=== PATIENT | male | born 1995 | race Caucasian/White ===

== ENCOUNTER 2018-06-14 01:31 | Emergency (ER) | payer MEDICAID ==
[~2018-06-14] VITALS: Ht 170.2 cm; Wt 59.3 kg
[~2018-06-14 01:31] MED LIST: HYDR-4383 PO
[2018-06-14 01:42] VITALS: BP 112/88
[2018-06-14] MEDS ORDERED: POLY17PO10 PO (02:00)
[2018-06-14] MEDS ORDERED: MAGN296S50 PO (02:00)
== END 2018-06-14 02:09 | disposition home or self-care (01) ==
LOC: ER 01:32
DX: K62.89 Other specified diseases of anus and rectum (principal); K64.9 Unspecified hemorrhoids; K59.00 Constipation, unspecified; Z79.899 Other long term (current) drug therapy
CPT/HCPCS: 99282

== ENCOUNTER 2018-06-30 22:28 | Emergency (ER) | payer MEDICAID ==
[~2018-06-30] VITALS: Ht 170.2 cm; Wt 69.0 kg
[~2018-06-30 22:28] MED LIST changes: +MAGN296S50 PO; +POLY17PO10 PO
[2018-06-30 22:32] VITALS: BP 132/88
--- NOTE | 2018-06-30 22:42 | NUR ---
PT STATES FOUL SMELL COMING FROM INSIDE NOSE
[2018-06-30] MEDS ORDERED: AMOX-422 PO (22:58)
--- NOTE | 2018-06-30 23:43 | NUR ---
RESOURCE INFORMATION GIVEN TO PT. 3 BAGGED LUNCHES GIVEN. PT SIGNED WAIVER FORM.
== END 2018-06-30 23:23 | disposition home or self-care (01) ==
LOC: ER 22:28
DX: J32.1 Chronic frontal sinusitis (principal)
CPT/HCPCS: 99283

== ENCOUNTER 2018-08-03 10:37 | Emergency (ER) | payer MEDICAID ==
[~2018-08-03] VITALS: Ht 175.3 cm; Wt 68.5 kg
[~2018-08-03 10:37] MED LIST changes: -POLY17PO10 PO
[2018-08-03 10:39] VITALS: BP 124/79
[2018-08-03] MEDS ORDERED: CLIN150C2 PO (11:41)
== END 2018-08-03 11:52 | disposition home or self-care (01) ==
LOC: ER 10:37
DX: K04.7 Periapical abscess without sinus (principal); Z79.899 Other long term (current) drug therapy
CPT/HCPCS: 99283

== ENCOUNTER 2020-01-21 12:46 | Emergency (ER) | payer MEDICAID ==
[~2020-01-21] VITALS: Ht 175.3 cm; Wt 68.2 kg
[~2020-01-21 12:46] MED LIST changes: -MAGN296S50 PO; +MAGN296S70 PO
[2020-01-21 12:47] VITALS: BP 142/86
[2020-01-21] MEDS ORDERED: IBUP-1984 PO (13:12)
== END 2020-01-21 13:26 | disposition home or self-care (01) ==
LOC: ER 12:46
DX: M70.21 Olecranon bursitis, right elbow (principal); Z79.899 Other long term (current) drug therapy
CPT/HCPCS: 99282

== ENCOUNTER 2020-03-28 17:40 | Emergency (ER) | payer MEDICAID ==
[~2020-03-28] VITALS: Ht 170.2 cm; Wt 78.6 kg
[2020-03-28 17:50] VITALS: BP 119/84
[2020-03-29] MEDS ORDERED: CEPH500C5 PO (18:35)
== END 2020-03-28 20:37 | disposition left against medical advice (07) ==
LOC: ER 17:41
DX: M79.89 Other specified soft tissue disorders (principal); Z53.21 Procedure and treatment not carried out due to patient leaving prior to being seen by health care provider

== ENCOUNTER 2020-03-29 17:35 | Emergency (ER) | payer MEDICAID ==
[~2020-03-29] VITALS: Ht 170.2 cm; Wt 79.1 kg
[2020-03-29 17:45] VITALS: BP 120/82
[2020-03-29] MEDS ORDERED: CEPH500C5 PO (18:35)
== END 2020-03-29 19:07 | disposition home or self-care (01) ==
LOC: ER 17:36
DX: L03.116 Cellulitis of left lower limb (principal); M25.572 Pain in left ankle and joints of left foot; M25.472 Effusion, left ankle; Z79.2 Long term (current) use of antibiotics; Z79.899 Other long term (current) drug therapy
CPT/HCPCS: 99283

== ENCOUNTER 2021-02-04 05:44 | Emergency (ER) | payer MEDICAID ==
[~2021-02-04] VITALS: Ht 177.8 cm; Wt 80.0 kg
[2021-02-04] MEDS ORDERED: normal saline 1000ml 1,000 ML IV ONE (07:35)
[2021-02-04] MEDS ORDERED: ondansetron/PF 4mg/2ml inj IV ONE (07:35)
[2021-02-04] MEDS ORDERED: cloNIDine 0.1 mg tablet PO ONE (07:45)
[2021-02-04] MEDS ORDERED: ketorolac trometh. 30mg/ml inj. IV ONE (07:50)
[2021-02-04] MEDS ORDERED: acetaminophen 325mg tablet PO ONE (07:50)
[2021-02-04 09:28] VITALS: BP 124/81
== END 2021-02-04 09:30 | disposition home or self-care (01) ==
LOC: ER 05:44
DX: T50.7X1A Poisoning by analeptics and opioid receptor antagonists, accidental (unintentional), initial encounter (principal); R11.0 Nausea; F11.90 Opioid use, unspecified, uncomplicated; Z79.899 Other long term (current) drug therapy; Y92.89 Other specified places as the place of occurrence of the external cause
CPT/HCPCS: 71045; 93005; 96374; 96375; 99285; J1885; J2405; J7030

== ENCOUNTER 2021-02-09 03:21 | Emergency (ER) | payer MEDICAID ==
[~2021-02-09] VITALS: Ht 182.9 cm; Wt 95.5 kg
[2021-02-09] MEDS ORDERED: normal saline 1000ML IV soln IVB ONE ×2 (03:35→04:55)
[2021-02-09 04:04] LABS: BASOPHILS % (AUTO) 0.3 % (0-1); EOSINOPHILS # (AUTO) 0.1 X10'3 (0-0.9); EOSINOPHILS % (AUTO) 1.7 % (0-6); HEMATOCRIT 43.1 % (42.0-52.0); HEMOGLOBIN 14.3 g/dl (14.0-17.9); LYMPHOCYTES # (AUTO) 3.6 X10'3 (1.1-4.8); LYMPHOCYTES % (AUTO) 47.2 % (21-51); MEAN CORPUSCULAR HGB CONC 33.3 g/dL (33.0-36.5); MEAN CORPUSCULAR VOLUME 87.1 FL (78-98); MONOCYTES # (AUTO) 0.8 X10'3 (0-0.9); NEUTROPHILS # (AUTO) 3.1 X10'3 (1.8-7.7); NEUTROPHILS % (AUTO) 40.8 % (42-75); PLATELET COUNT 200 X10'3 (140-440); RED BLOOD COUNT 4.95 X10'6 (4.70-6.10); RED CELL DISTRIBUTION WIDTH 13.6 % (11.5-14.5); WHITE BLOOD COUNT 7.7 X10'3 (4.5-11.0)
[2021-02-09 04:08] LABS: ALANINE AMINOTRANSFERASE 46 U/L (12-78); ALBUMIN 4.4 G/DL (3.4-5.0); ALBUMIN/GLOBULIN RATIO 0.9 (1.1-1.5); ALKALINE PHOSPHATASE 103 IU/L (46-116); ANION GAP 5 (8-16); ASPARTATE AMINO TRANSFERASE 23 U/L (10-37); BILIRUBIN,TOTAL 0.6 MG/DL (0.1-1.0); BLOOD UREA NITROGEN 13 MG/DL (7-18); BUN/CREATININE RATIO 14.1 (5.4-32.0); CALCIUM 9.9 MG/DL (8.5-10.1); CHLORIDE 104 MMOL/L (99-107); CREATININE 0.92 MG/DL (0.60-1.10); ETHANOL < 0.010 GM/DL (0.0-0.010); GLUCOSE 98 MG/DL (70-104); POTASSIUM 4.2 MMOL/L (3.5-5.1); SODIUM 140 MMOL/L (135-145); TOTAL CARBON DIOXIDE 31.2 MMOL/L (24-32); TOTAL PROTEIN 9.1 G/DL (6.4-8.2); eGFR > 90 ML/MIN
[2021-02-09 04:13] LABS: URINE AMPHETAMINE SCREEN POSITIVE (Neg); URINE BARBITUATE SCREEN NEGATIVE (Neg); URINE BENZODIAZEPINES SCREEN NEGATIVE (Neg); URINE CANNABINOID SCREEN POSITIVE (Neg); URINE COCAINE SCREEN NEGATIVE (Neg); URINE METHADONE SCREEN NEGATIVE (Neg); URINE OPIATE SCREEN POSITIVE (Neg); URINE PHENCYCLIDINE SCREEN NEGATIVE (Neg)
[2021-02-09] MEDS ORDERED: LORazepam 2 mg/ml vial IV ONE (04:20)
[2021-02-09] MEDS ORDERED: haloperidol lactate 5mg/ml inj IM ONE (04:20)
[2021-02-09 04:21] LABS: COLOR,URINE YELLOW (Yellow); GLUCOSE, URINE NEGATIVE (Neg); KETONES,URINE NEGATIVE (Neg); LEUKOCYTE ESTERASE ,URINE NEGATIVE (Neg); NITRITES, URINE NEGATIVE (Neg); OCCULT BLOOD,URINE NEGATIVE (Neg); PH,URINE 5.5 (4.8-8.0); PROTEIN,URINE NEGATIVE (Neg); UROBILINOGEN,URINE 0.2 E.U/dL (0.2-1.0)
[2021-02-09 04:22] LABS: UA COLLECTION TYPE STRAIGHT CATH
[2021-02-09 04:27] LABS: CLARITY,URINE SLIGHTLY CLOUDY (Clear)
[2021-02-09 04:28] LABS: BACTERIA,URINE NONE SEEN /HPF (Neg); MUCUS STRANDS MANY /LPF (Neg); RBC,URINE NONE SEEN /HPF (0-2); SQUAMOUS EPITHELIAL CELL,UR FEW /LPF (FEW); WBC,URINE 0-4 /HPF (0-4)
--- NOTE | 2021-02-09 07:02 | NUR ---
patient is asleep, no longer thrashing. restraints dc'd, will continue to monitor.
--- NOTE | 2021-02-09 07:35 | NUR ---
DR. CALLAWAY UPDATED. PT IS STILL LETHARGIC FROM MEDICATIONS. AROUSABLE TO SHAKING. WILL CONTINUE TO MONITOR.
--- NOTE | 2021-02-09 09:45 | NUR ---
PATIENT NOW AROUSABLE. ABLE TO ANSWER ORIENTATION QUESTIONS. SEEMS CONFUSED ABOUT EVENTS FROM LAST NIGHT. MD UPDATED.
[2021-02-09 11:00] VITALS: BP 147/83
== END 2021-02-09 11:02 | disposition home or self-care (01) ==
LOC: ER 03:21
DX: T40.411A Poisoning by fentanyl or fentanyl analogs, accidental (unintentional), initial encounter (principal); T42.4X1A Poisoning by benzodiazepines, accidental (unintentional), initial encounter; T40.1X1A Poisoning by heroin, accidental (unintentional), initial encounter; R45.1 Restlessness and agitation; F15.90 Other stimulant use, unspecified, uncomplicated; Z79.899 Other long term (current) drug therapy; Y92.89 Other specified places as the place of occurrence of the external cause
CPT/HCPCS: 36415; 80053; 80305; 80320; 81001; 85025; 96361; 96372; 96374; 99285; J1630; J2060; J7030

== ENCOUNTER 2021-12-24 17:20 | Emergency (ER) | payer MEDICAID ==
[~2021-12-24] VITALS: Ht 175.3 cm; Wt 81.8 kg
[2021-12-24 18:17] VITALS: BP 122/84
[2021-12-24] MEDS ORDERED: LIDOcaine 1% W/epiNEPHrine 1:100,000 20ml vial IJ ONE (18:25)
[2021-12-24] MEDS ORDERED: amox tr/potassium clavulanate 875/125mg TAB PO ONE (19:30)
[2021-12-24] MEDS ORDERED: AMOX-117 PO (20:03)
[2021-12-24] MEDS ORDERED: ceFAZolin 1gm IM kit IM ONE (20:25)
== END 2021-12-24 20:43 | disposition home or self-care (01) ==
LOC: ER 17:20
DX: S61.252A Open bite of right middle finger without damage to nail, initial encounter (principal); W54.0XXA Bitten by dog, initial encounter; Y93.89 Activity, other specified; Y92.89 Other specified places as the place of occurrence of the external cause; Y99.8 Other external cause status; Z79.899 Other long term (current) drug therapy
CPT/HCPCS: 26010; 73140; 96372; 99283; J0690; J7030; A6258; A6449

== ENCOUNTER 2022-01-12 19:50 | Emergency (ER) | payer SELFPAY ==
[~2022-01-12] VITALS: Ht 177.8 cm; Wt 81.8 kg
[2022-01-12 20:07] VITALS: BP 121/77
== END 2022-01-12 22:27 | disposition left against medical advice (07) ==
LOC: ER 19:51
DX: L03.90 Cellulitis, unspecified (principal); Z53.21 Procedure and treatment not carried out due to patient leaving prior to being seen by health care provider

== ENCOUNTER 2024-03-23 20:02 | Emergency (ER) | payer OTHER ==
[~2024-03-23] VITALS: Ht 175.3 cm; Wt 81.0 kg
[~2024-03-23 20:02] MED LIST changes: -MAGN296S70 PO; +MAGN296S89 PO
[2024-03-23 22:17] VITALS: BP 132/67; PULSE 82; RESP 16; TEMP 98.4; O2SAT 99
== END 2024-03-23 22:19 | disposition home or self-care (01) ==
LOC: ER 20:02
DX: M25.561 Pain in right knee (principal); M25.461 Effusion, right knee; F11.90 Opioid use, unspecified, uncomplicated; Z79.899 Other long term (current) drug therapy
CPT/HCPCS: 29505; 73564; 99283

== ENCOUNTER 2024-08-23 04:41 | Inpatient (IN) | payer OTHER ==
[~2024-08-23] VITALS: Ht 175.3 cm; Wt 76.9 kg
[2024-08-23] MEDS: vancomycin/NS 1 GM ADD-VANTAGE 250 ML IV ONE (05:35)
[2024-08-23] MEDS: CefTRIAXone 2gm/D5W 50ml BAG 50 ML IV ONE (06:05)
[2024-08-23 06:20] LABS: BASOPHILS % (AUTO) 0.3 % (0-1); EOSINOPHILS % (AUTO) 0.4 % (0-6); HEMATOCRIT 34.3 % (42.0-52.0); HEMOGLOBIN 11.7 g/dl (14.0-17.9); LYMPHOCYTES # (AUTO) 1.5 X10'3 (1.1-4.8); LYMPHOCYTES % (AUTO) 27.5 % (21-51); MEAN CORPUSCULAR HEMOGLOBIN 29.4 PG (27.0-31.0); MEAN CORPUSCULAR VOLUME 86.4 FL (78-98); MEAN PLATELET VOLUME 8.4 FL (7.4-10.4); MONOCYTES # (AUTO) 0.8 X10'3 (0-0.9); MONOCYTES % (AUTO) 13.9 % (2-12); NEUTROPHILS # (AUTO) 3.2 X10'3 (1.8-7.7); NEUTROPHILS % (AUTO) 57.9 % (42-75); PLATELET COUNT 207 X10'3 (140-440); RED BLOOD COUNT 3.97 X10'6 (4.70-6.10); RED CELL DISTRIBUTION WIDTH 12.9 % (11.5-14.5); WHITE BLOOD COUNT 5.5 X10'3 (4.5-11.0)
[2024-08-23 06:23] LABS: ALBUMIN 3.6 G/DL (3.4-5.0); ANION GAP 7 (8-16); BLOOD UREA NITROGEN 10 MG/DL (7-18); BUN/CREATININE RATIO 13.7 (10.0-20.0); CALCIUM 8.6 MG/DL (8.5-10.1); CHLORIDE 102 MMOL/L (99-107); CREATININE 0.73 MG/DL (0.60-1.10); GLUCOSE 99 MG/DL (70-104); MAGNESIUM 1.9 MG/DL (1.5-2.4); POTASSIUM 3.7 MMOL/L (3.5-5.1); SODIUM 141 MMOL/L (135-145); TOTAL CARBON DIOXIDE 31.8 MMOL/L (24-32); eCRCL 148 ML/MIN; eGFR > 90 ML/MIN
[2024-08-23] MEDS ORDERED: acetaminophen 325mg tablet PO PRN ×2 (07:25)
[2024-08-23] MEDS ORDERED: mag hydrox/Alum hydrox/simeth 30ml oral suspension PO PRN (07:25)
[2024-08-23] MEDS ORDERED: diphenhydrAMINE 25mg capsule PO PRN (07:25)
[2024-08-23] MEDS ORDERED: potassium Cl 40MEQ/1/2NS 520ml 520 ML IV PRN (07:25)
[2024-08-23] MEDS ORDERED: diphenhydrAMINE 50 mg/ml inj IV PRN (07:25)
[2024-08-23] MEDS ORDERED: potassium Cl 20 mEq SR tablet PO PRN ×2 (07:25)
[2024-08-23] MEDS ORDERED: magnesium Cl slow-release 64mg tablet PO PRN (07:25)
[2024-08-23] MEDS ORDERED: ondansetron/PF 4mg/2ml inj IV PRN (07:25)
[2024-08-23] MEDS ORDERED: magnesium sulf-water 2g/50mL 50 ML IV PRN (07:25)
[2024-08-23] MEDS ORDERED: magnesium hydroxide 30ml (MOM) UD suspension PO PRN (07:25)
[2024-08-23] MEDS ORDERED: magnesium sulf-water 4G/100mL 100 ML IV PRN (07:25)
[2024-08-23] MEDS ORDERED: iohexol 300mg/ml 100ml inj. ONE (07:48)
[2024-08-23] MEDS: docusate sod 100mg capsule PO SCH (08:00)
[2024-08-23] MEDS: K and/or MAG REPLACEMENT MC SCH (08:00)
[2024-08-23 08:08] LABS: PRO BRAIN NATRIURETIC PEPTIDE < 30 PG/ML (0-125)
[2024-08-23 10:00] VITALS: BP 114/71; PULSE 65; RESP 16; TEMP 98.7; O2SAT 97
[2024-08-23] MEDS: CEFEPIME 2gm in D5W 50mL 50 ML IV SCH (10:43)
[2024-08-23] MEDS: heparin, porcine 5000 units/ml vial SQ SCH (10:44)
[2024-08-23 11:08] VITALS: RESP 16; O2SAT 97
[2024-08-23] MEDS: nicotine 21mg patch - 24 hr TD ONE (12:50)
[2024-08-23] MEDS ORDERED: vancomycin/NS 1 GM ADD-VANTAGE 250 ML IV SCH (13:00)
[2024-08-23 13:43] LABS: BILIRUBIN,URINE NEGATIVE (Neg); CLARITY,URINE CLEAR (Clear); COLOR,URINE YELLOW (Yellow); GLUCOSE, URINE NEGATIVE (Neg); KETONES,URINE NEGATIVE (Neg); LEUKOCYTE ESTERASE ,URINE NEGATIVE (Neg); NITRITES, URINE NEGATIVE (Neg); OCCULT BLOOD,URINE NEGATIVE (Neg); PROTEIN,URINE NEGATIVE (Neg); UROBILINOGEN,URINE 0.2 E.U/dL (0.2-1.0)
[2024-08-23 13:57] LABS: UA COLLECTION TYPE CLN CATCH MIDSTREAM
[2024-08-23 14:12] LABS: URINE AMPHETAMINE SCREEN POSITIVE (Neg); URINE BARBITUATE SCREEN NEGATIVE (Neg); URINE BENZODIAZEPINES SCREEN NEGATIVE (Neg); URINE CANNABINOID SCREEN NEGATIVE (Neg); URINE COCAINE SCREEN NEGATIVE (Neg); URINE METHADONE SCREEN NEGATIVE (Neg); URINE OPIATE SCREEN NEGATIVE (Neg); URINE PHENCYCLIDINE SCREEN NEGATIVE (Neg)
[2024-08-23 18:00] VITALS: BP 120/77; PULSE 80; RESP 16; TEMP 97.4; O2SAT 99
[2024-08-23 20:00] VITALS: RESP 16; O2SAT 99
[2024-08-23] MEDS: doxycycline inj 100 MG in normal saline 100ml IV soln 100 ML IV SCH (20:59)
[2024-08-23 22:00] VITALS: BP 118/75; PULSE 77; RESP 19; TEMP 98.3; O2SAT 99
[2024-08-24] MEDS: VANCOMYCIN LEVEL IV ONE (05:17)
[2024-08-24 06:00] VITALS: BP 105/70; PULSE 66; RESP 18; TEMP 98.3; O2SAT 98
[2024-08-24 06:50] LABS: BASOPHILS % (AUTO) 0.3 % (0-1); EOSINOPHILS % (AUTO) 0.1 % (0-6); HEMATOCRIT 36.4 % (42.0-52.0); HEMOGLOBIN 12.1 g/dl (14.0-17.9); LYMPHOCYTES # (AUTO) 1.4 X10'3 (1.1-4.8); LYMPHOCYTES % (AUTO) 35.9 % (21-51); MEAN CORPUSCULAR HEMOGLOBIN 28.9 PG (27.0-31.0); MEAN CORPUSCULAR HGB CONC 33.4 g/dL (33.0-36.5); MEAN CORPUSCULAR VOLUME 86.5 FL (78-98); MEAN PLATELET VOLUME 8.3 FL (7.4-10.4); MONOCYTES # (AUTO) 0.5 X10'3 (0-0.9); MONOCYTES % (AUTO) 12.7 % (2-12); NEUTROPHILS # (AUTO) 2.1 X10'3 (1.8-7.7); PLATELET COUNT 194 X10'3 (140-440); RED BLOOD COUNT 4.21 X10'6 (4.70-6.10); RED CELL DISTRIBUTION WIDTH 12.9 % (11.5-14.5)
[2024-08-24 07:03] LABS: ALANINE AMINOTRANSFERASE 22 U/L (12-78); ALBUMIN 3.2 G/DL (3.4-5.0); ALBUMIN/GLOBULIN RATIO 0.7 (1.1-1.5); ALKALINE PHOSPHATASE 90 IU/L (46-116); ANION GAP 4 (8-16); ASPARTATE AMINO TRANSFERASE 17 U/L (10-37); BILIRUBIN,TOTAL 0.4 MG/DL (0.1-1.0); BLOOD UREA NITROGEN 8 MG/DL (7-18); BUN/CREATININE RATIO 11.6 (10.0-20.0); CALCIUM 8.8 MG/DL (8.5-10.1); CHLORIDE 104 MMOL/L (99-107); CREATININE 0.69 MG/DL (0.60-1.10); GLUCOSE 96 MG/DL (70-104); POTASSIUM 4.1 MMOL/L (3.5-5.1); SODIUM 139 MMOL/L (135-145); TOTAL CARBON DIOXIDE 31.1 MMOL/L (24-32); TOTAL PROTEIN 8.1 G/DL (6.4-8.2); eCRCL 157 ML/MIN; eGFR > 90 ML/MIN
[2024-08-24 08:00] VITALS: RESP 18; O2SAT 98
[2024-08-24] MEDS: nicotine 21mg patch - 24 hr TD SCH (08:22)
[2024-08-24] MEDS: CefTRIAXone 2gm/D5W 50ml BAG 50 ML IV SCH (08:23)
[2024-08-24 10:00] VITALS: BP 144/75; PULSE 101; RESP 15; TEMP 98; O2SAT 94
[2024-08-24] MEDS ORDERED: CLIN-97 PO (10:19)
[2024-08-24] MEDS ORDERED: CEFD300C3 PO (10:19)
== END 2024-08-24 11:55 | disposition home or self-care (01) | DRG 603 ==
LOC: ER 04:41 → ED HOLD 07:28 → ORTHO 4S 08:50
PROVIDERS: ADMIT Nurse Practitioner Family; ATTEND Nurse Practitioner Family
PROC: BQ2R1ZZ Computerized Tomography (CT Scan) of Right Lower Extremity using Low Osmolar Contrast (ICD-10-PCS; principal; 2024-08-23)
DX: L03.115 Cellulitis of right lower limb (principal); F17.210 Nicotine dependence, cigarettes, uncomplicated; M25.461 Effusion, right knee; F15.10 Other stimulant abuse, uncomplicated; Z79.899 Other long term (current) drug therapy
CPT/HCPCS: 36415; 71045; 73701; 80048; 80053; 80305; 81003; 83605; 83735; 83880; 84145; 85025; 87040; 87081; 93971; 96365; 96367; 96372; 96375; 99285; G0378; J0692; J0696; J1644; J3370; J3490; J7040; Q9967